=== PATIENT | male | born 1985 | race Caucasian/White ===

== ENCOUNTER 2018-11-26 15:18 | Outpatient (CLI) | payer OTHER | END 2018-11-26 15:26 | disposition home or self-care (01) | LOC: SONOGRAMA 15:18 | DX: M75.52 Bursitis of left shoulder (principal) ==

== ENCOUNTER 2018-11-26 16:09 | Outpatient (CLI) | payer OTHER | END 2018-11-26 16:18 | disposition home or self-care (01) | LOC: RAD 16:09 | DX: M75.52 Bursitis of left shoulder (principal) ==

== ENCOUNTER 2019-08-18 10:16 | Outpatient (CLI) | payer OTHER | END 2019-08-18 10:23 | disposition home or self-care (01) | LOC: RAD 10:16 | DX: R50.9 Fever, unspecified (principal) ==

== ENCOUNTER 2020-12-15 10:29 | Outpatient (CLI) | payer OTHER | END 2020-12-15 10:53 | disposition home or self-care (01) | LOC: LAB 10:29 | PROVIDERS: ATTEND Pediatrics | DX: Z20.828 Contact with and (suspected) exposure to other viral communicable diseases (principal) ==

== ENCOUNTER 2021-04-19 09:00 | Outpatient (CLI) | payer OTHER | END 2021-04-19 09:30 | disposition home or self-care (01) | LOC: PPH VACUNA 09:00 | PROVIDERS: ATTEND Emergency Medicine Pediatric Emergency Medicine | DX: Z23 Encounter for immunization (principal) ==

== ENCOUNTER 2022-11-10 08:58 | Outpatient (CLI) | payer OTHER | END 2022-11-10 09:07 | disposition home or self-care (01) | LOC: RAD 08:58 | PROVIDERS: ATTEND Physical Medicine & Rehabilitation Sports Medicine | DX: M75.52 Bursitis of left shoulder (principal); M75.112 Incomplete rotator cuff tear or rupture of left shoulder, not specified as traumatic ==

== ENCOUNTER 2022-11-21 15:03 | Outpatient (CLI) | payer OTHER | END 2022-11-21 15:14 | disposition home or self-care (01) | LOC: MRI 15:03 | PROVIDERS: ATTEND Physical Medicine & Rehabilitation Sports Medicine | DX: M54.2 Cervicalgia (principal); M62.830 Muscle spasm of back; M54.12 Radiculopathy, cervical region | CPT/HCPCS: 72141 ==

== ENCOUNTER 2023-01-11 15:57 | Emergency (ER) | payer OTHER ==
[~2023-01-11] VITALS: Ht 170.2 cm; Wt 83.9 kg
== END 2023-01-11 17:55 | disposition home or self-care (01) ==
LOC: ER 15:57
DX: S01.81XA Laceration without foreign body of other part of head, initial encounter (principal); X58.XXXA Exposure to other specified factors, initial encounter; Y93.89 Activity, other specified; Y92.89 Other specified places as the place of occurrence of the external cause; Y99.8 Other external cause status

== ENCOUNTER 2023-07-29 07:17 | Outpatient (CLI) | payer OTHER | END 2023-07-29 07:31 | disposition home or self-care (01) | LOC: RAD 07:17 | PROVIDERS: ATTEND Orthopaedic Surgery Sports Medicine | DX: M75.51 Bursitis of right shoulder (principal); M24.411 Recurrent dislocation, right shoulder | CPT/HCPCS: 73218 ==

== ENCOUNTER → 2024-06-16 | Outpatient (CLI) | payer OTHER | END | disposition home or self-care (01) | LOC: RAD 14:32 | PROVIDERS: ATTEND Pediatrics | DX: S92.333A Displaced fracture of third metatarsal bone, unspecified foot, initial encounter for closed fracture (principal); X58.XXXA Exposure to other specified factors, initial encounter; Y93.9 Activity, unspecified; Y92.9 Unspecified place or not applicable; Y99.9 Unspecified external cause status ==

== ENCOUNTER 2024-10-25 14:57 | Outpatient (CLI) | payer OTHER | END 2024-10-25 15:02 | disposition home or self-care (01) | LOC: RAD 14:57 | PROVIDERS: ATTEND Pediatrics | DX: M25.551 Pain in right hip (principal); S73.191A Other sprain of right hip, initial encounter; X58.XXXA Exposure to other specified factors, initial encounter; Y93.9 Activity, unspecified; Y92.9 Unspecified place or not applicable; Y99.9 Unspecified external cause status ==